=== PATIENT | female | born 1945 | race Caucasian/White ===

== ENCOUNTER → 2017-03-06 | Outpatient (CLI) | payer MEDICARE, OTHER ==
--- NOTE | 2017-03-06 08:15 | RAD ---
Indication: Right leg pain. Grayscale, color-flow and duplex Doppler evaluation of the right lower extremity deep venous system was performed. FINDINGS: There is no evidence of a right lower extremity DVT. The right lower extremity venous system demonstrates normal compressibility with normal response to augmentation and Valsalva. No soft tissue fluid collections are identified. IMPRESSION: No evidence of right lower extremity DVT.
== END | disposition home or self-care (01) ==
LOC: US 07:42
PROVIDERS: ATTEND Internal Medicine Hematology & Oncology
DX: M79.604 Pain in right leg (principal)
CPT/HCPCS: 93971

== ENCOUNTER → 2017-04-26 | Outpatient (CLI) | payer MEDICARE, OTHER ==
[~2017-04-26] MED LIST: CONTRAST GIVEN MC
[2017-04-26] MEDS: IOHEXOL 240 MG/ML 50ML VIAL. PO (12:45)
[2017-04-26] MEDS: IOHEXOL 300 MG/ML 100ML VIAL. IV (12:45)
== END | disposition home or self-care (01) ==
LOC: CT 11:57
DX: K76.89 Other specified diseases of liver (principal); C25.9 Malignant neoplasm of pancreas, unspecified; Z90.49 Acquired absence of other specified parts of digestive tract
CPT/HCPCS: 74177; Q9966; Q9967

== ENCOUNTER → 2017-06-12 | Outpatient (CLI) | payer MEDICARE, OTHER ==
[~2017-06-12] MED LIST changes: -CONTRAST GIVEN MC; +HEPARIN PF 500 UNIT/5 ML DISP.SYRIN. IV; +LIDOCAINE 2%/EPI 1:100,000 20 ML VIAL.
== END | disposition home or self-care (01) ==
LOC: INTRAD 07:16
DX: C25.9 Malignant neoplasm of pancreas, unspecified (principal); I25.10 Atherosclerotic heart disease of native coronary artery without angina pectoris; G47.30 Sleep apnea, unspecified; K21.9 Gastro-esophageal reflux disease without esophagitis; M81.0 Age-related osteoporosis without current pathological fracture; F41.9 Anxiety disorder, unspecified; Z87.891 Personal history of nicotine dependence; Z88.8 Allergy status to other drugs, medicaments and biological substances; Z88.5 Allergy status to narcotic agent; Z90.49 Acquired absence of other specified parts of digestive tract
CPT/HCPCS: 36561

== ENCOUNTER 2017-06-13 09:56 | Outpatient (CLI) | payer MEDICARE, OTHER ==
[2017-06-13 10:20] LABS: ADD MAN DIFF? NO
[2017-06-13 10:26] LABS: BASO % 1 % (0-3); EOS # 0.1 x10^3/uL (0.0-0.7); EOS % 3 % (0-3); HEMATOCRIT 34.1 % (36.0-47.0); HEMOGLOBIN 10.9 g/dL (12.0-15.5); LYMPH # 0.8 x10^3/uL (1.0-4.8); LYMPH % 25 % (24-48); MEAN CORPUSCULAR HEMOGLOBIN 27 pg (25-35); MEAN CORPUSCULAR HGB CONC 32 g/dL (31-37); MEAN CORPUSCULAR VOLUME 85 fL (79-100); MONO # 0.1 x10^3/uL (0.0-1.1); MONO % 2 % (0-9); NEUT # 2.3 x10^3uL (1.8-7.7); NEUT % 69 % (31-73); PLATELET COUNT 128 x10^3/uL (140-400); RED BLOOD COUNT 4.04 x10^6/uL (3.50-5.40); RED CELL DISTRIBUTION WIDTH 16.8 % (11.5-14.5); WHITE BLOOD COUNT 3.3 x10^3/uL (4.0-11.0)
[2017-06-13] MEDS ORDERED: MIDAZOLAM HCL/PF 2 MG/2 ML VIAL. (13:18)
[2017-06-13] MEDS ORDERED: fentaNYL PF VIAL 100 MCG/2 ML VIAL (13:18)
[2017-06-13] MEDS: LIDOCAINE 2%/EPI 1:100,000 20 ML VIAL. IJ (13:48)
[2017-06-13] MEDS: MIDAZOLAM HCL/PF 2 MG/2 ML VIAL. IV (13:51)
[2017-06-13] MEDS: fentaNYL PF VIAL 100 MCG/2 ML VIAL IV (13:52)
== END 2017-06-13 15:30 | disposition home or self-care (01) ==
LOC: INTRAD 09:56
DX: C25.9 Malignant neoplasm of pancreas, unspecified (principal); I25.10 Atherosclerotic heart disease of native coronary artery without angina pectoris; R51 Headache; M81.8 Other osteoporosis without current pathological fracture; F41.9 Anxiety disorder, unspecified; F17.200 Nicotine dependence, unspecified, uncomplicated; Z91.018 Allergy to other foods; Z90.49 Acquired absence of other specified parts of digestive tract; Z88.8 Allergy status to other drugs, medicaments and biological substances
CPT/HCPCS: 36415; 36561; 76937; 77001; 85025; 85610; 99152; 99153; A4215; C1751; C1892; J0690; J2250; J3010; J3490